=== PATIENT | female | born 1995 | race Caucasian/White ===

== ENCOUNTER 2019-08-19 10:06 | Inpatient (IN) | payer OTHER, SELFPAY ==
[2019-08-19] VITALS (18 sets, daily range): BP systolic 110–131; BP diastolic 51–81; PULSE 74–101; RESP 14–18; TEMP 36.2–37.2; O2SAT 96–100; BMI 29.1
[2019-08-19] MEDS: Cefazolin 2 GM in 0.9% Normal Saline 100 ML IV (10:34)
[2019-08-19 11:01] LABS: Absolute Lymphocyte Count 1.24 X10^3/uL (0.83-4.51); Absolute Neutrophil Count 10.2 X10^3/uL (2.0-7.7); Basophil# 0.02 X10^3/uL; Basophil% 0.2 % (0-1); Eosinophil# 0.01 X10^3/uL; Eosinophils% 0.1 % (0-5); Hematocrit 38.5 % (37-47); Hemoglobin 13.3 g/dL (12.0-15.0); Lymphocyte # 1.24 X10^3/ul (4.0); Lymphocyte % 10.3 % (19-41); Mean Corp Hgb Conc 34.5 g/dL (32-36); Mean Corpuscular Hgb 31.2 pg (27.0-32.0); Mean Corpuscular Volume 90.4 fL (81-99); Mean Platelet Vol. 10.4 fl (6.2-12.0); Monocyte# 0.47 X10^3/uL; Monocyte% 3.9 % (0-10); NRBC Flagged by Analyzer 0 % (0-5); Neutrophil % 85.1 % (47-70); Platelet Count 110 K/mm3 (150-450); RBC Distribution Width CV 12.3 % (11.6-14.6); RBC Distribution Width SD 40.9 fl (35.1-43.9); Red Blood Count 4.26 M/mm3 (4.2-5.4)
[2019-08-19 11:32] LABS: Amphetamine Urine VISTA NEGATIVE (<1000 ng/mL); Barbiturate Urine VISTA NEGATIVE (< 200 ng/mL); Benzodiazepine Urine VISTA NEGATIVE (< 200 ng/mL); Cocaine Urine VISTA NEGATIVE (< 300 ng/mL); Ecstacy Urine VISTA NEGATIVE (< 500 ng/mL); Methadone Urine VISTA NEGATIVE (< 300 ng/mL); PCP Urine VISTA NEGATIVE (< 25 ng/mL); THC Urine VISTA NEGATIVE (< 50 ng/mL); Vista UDS pH Range 5
--- NOTE | 2019-08-19 11:48 | HP.PCM_ITS ---
History Date of Admission: 08/19/19 Final XUAN: 09/03/19 Gestational age: 37 Weeks and 6 Days History of this : This is a 23 year-old, G [], P [], at weeks gestational age. Allergies No Known Allergies Allergy (Verified 08/19/19 10:30) Smoking Status: Never smoker Alcohol: None Number of Fetus(es): 2 History Past Pregnancies: Past Pregnancies Delivery Date Name GA/ Weeks Outcome Route Wt Infant Sex Labor Length Anesthesia Delivery Location Provider FOB Labs: Care with a set up and lay out inspector Physical Exam General: Alert, Oriented x3 Abdomen: Soft, Non Tender, Non-Distended, Gravid Neurological: Cranial nerves II-XII grossly intact COMMUNICATIONS PROGRAMMER: Normal external genitalia Assessment/Plan This is a 23 year-old, G1, P0, at 37&6 weeks gestational age. Patient presented with her & set up and lay out inspector with twin and in labor. Baby A was double footling breech. Patient had an emergent section. Please see the operative report.
[2019-08-19 11:52] LABS: Rubella IgG 2.1 IU/mL
[2019-08-19] MEDS: Methylergonovine 0.2 MG/ML Ampul IM (11:55)
--- NOTE | 2019-08-19 11:57 | OP.PCM_ITS ---
Report of Operation Surgery/Procedure Performed:: Low transvere section Description of Surgical Findings:: Normal maternal uterus & adnexa Delivery Classification: Stat Final XUAN: 09/03/19 Gestational age: 37 Weeks and 6 Days hammer operator: Aurelia Ramos Type of Anesthesia:: Spinal Date of Procedure: 08/19/19 Pre-Operative Diagnosis: (1) Twin (2) Baby A double footling breech presentation Post-Operative Diagnosis: Same Indications for : Breech, Malpresentation Description of Procedure: Patient taken [facility] where vaginal exam confirmed double footling breech presentation of baby A. TAUS performed to confirm both presentations & cardiac activity. Spinal anesthesia was placed soon after decision made to proceed with section. Patient was prepped and draped in normal sterile fashion in a dorsal supinr position with a leftward tilt. After ensuring adequacy of anesthesia the Pfannensteil skin incision was made and carried through to the underlying fascia. The fascia was incised in the midline and carried laterally with the Stahl scissors. The rectus muscles were in the midline and the peritoneum was entered bluntly. The bladder flap was dissected down carefully with the Metzenbaum scissors and blunt dissection. The uterus was incised in a transverse fashion and then incision extended with cephalocaudad traction. Baby A was breech. Buttocks grasped and elevated to uterine incision. Baby A was delivered via typical breech maneuvers. 3VC clamped & cut and baby A handed to waiting RN. Baby B's feet were grasped. Amniotomy performed. Baby B delivered was also delivered via typical breech maneuvers. The 3VC cord was clamped & cut and baby B was handed off to the waiting RN. The placentas were delivered with gentle traction and fundal massage and the uterus was exteriorized and cleared of all clots and debris. The uterine incision was closed with 1 vicryl suture in a running locked fashion. A second imbricating layer of monocryl was placed. The uterus was returned to the peritoneal cavity. The pelvis was irrigated & then cleared of all clots and debris. The uterine incision was reexamined and found to be hemostatic. Some eric was placed over the uterine incision & bladder flap due to the denuded areas. The parietal peritoneum was reapproximated with running vicryl suture. The fascia was closed with looped PDS suture in a running standard fashion. The subcutaneous tissue was examined & any bleeding bovie cauterized. The subcutaneous tissue was reapproximated with plain gut suture. The skin was closed in a subcuticular fashion by the BOX CLOSING MACHINE OPERATOR with me present in the labor and delivery suite. I performed the remainder of the procedure with assistance. Amniotic Membrane Rupture Type: Spontaneous Amniotic Fluid Description: Lightly stained meconium Placenta Disposition: [facility] Drain: Ramires to straight drain Fluids Replaced: 1500ml Cord Entanglement: None Cord Vessel Description: 3 Vessels Infant Gender: Male - baby A - weight 3545g (1 minute): 9 (5 minute): 9 Delayed cord clamping: No Antibiotic Given: Ancef 2 grams IV x1, Zithromax 500 mg/5 mL X1 Complications: None - Admit VTE Documentation VTE Present on Admission: No Baby B - Information Amniotic Membrane Rupture Type: Artificial Presentation: Complete Breech - Operative Information Cord Entanglement: None Cord Vessel Description: 3 Vessels Infant B gender: Female - baby B - weight 2405g (1 minute): 4 (5 minute): 9
[2019-08-19] MEDS: Oxytocin 30 units/NS 500 ml 30 UNITS/500 ML IV.SOLN 167 UNITS IV (12:00)
[2019-08-19 12:17] LABS: HIV - WCH Non-Reactive (Nonreactive); Hepatitis B Surface Antigen Non-Reactive (Nonreactive); Hepatitis C Antibody Non-Reactive (Nonreactive)
[2019-08-19] MEDS: Lactated Ringers 1,000 ML 100 ML IV ×2 (15:04→23:41)
[2019-08-19] MEDS: Ketorolac 30 MG/ML Syringe IV ×2 (17:41→23:41)
--- NOTE | 2019-08-19 20:41 | NURSING ---
Pt educated on Rubella immune status and MMR vaccine. MMR vaccine refused.
--- NOTE | 2019-08-19 22:30 | NURSING ---
Encouraged pt to pump after feedings to increase milk supply.
[2019-08-20] VITALS (8 sets, daily range): BP systolic 99–118; BP diastolic 56–65; PULSE 86–106; RESP 16–20; TEMP 36.1–36.8; O2SAT 95–100
[2019-08-20 00:56] LABS: Rapid Plasmin Reagin (RPR) NONREACTIVE (NONREACTIVE)
[2019-08-20] MEDS: Ketorolac 30 MG/ML Syringe IV ×3 (05:18→18:26)
[2019-08-20 05:26] LABS: Hematocrit 26.3 % (37-47); Mean Corp Hgb Conc 34.2 g/dL (32-36); Mean Corpuscular Volume 90.7 fL (81-99); Mean Platelet Vol. 9.9 fl (6.2-12.0); POSITIVE COUNT YES; Platelet Count 98 K/mm3 (150-450); RBC Distribution Width CV 12.4 % (11.6-14.6); RBC Distribution Width SD 41.1 fl (35.1-43.9); White Blood Count 9.2 K/mm3 (4.4-11.0)
[2019-08-20 05:36] LABS: Scan Indicated on CBC? Y/N NO
--- NOTE | 2019-08-20 14:30 | CASEMGMT ---
Social Work Brief Assessment - Labor and Delivery Unit Refer documentation below for further details. Date of Referral/Notification: 08/20/19 Time of Referral: 06:23 Reason for Referral: RESOURCES Date of Intervention: 08/20/19 Time of Intervention: 14:30 Informant: Medical record and mother of baby (MOB) History: TWIN VIA . 1 BABY WAS SENT TO [place] AND RETURNED AND 1 IN SCN. Assessment: MET WITH MOB AND HER MOTHER IN ROOM. INTRODUCED ROLE AND REASON FOR REFERRAL. MOB NURSING BABY UPON ENTERING ROOM. INFORMED THIS WORKER COULD COME BACK, BUT WAS GIVEN PERMISSION TO STAY AND COMPLETE ASSESSMENT. MOB ALSO GAVE PERMISSION FOR THIS WORKER TO SPEAK OPENLY WITH HER MOTHER PRESENT. MOB REPORTS TWINS, BABY BOY ANUPAMA AND BABY GIRL TRENT WERE BORN ON 08/19/19. MOB HAD PLANNED FOR HOME , BUT HAD TO HAVE . SUPPORT PROVIDED. MOB STATES FEELING OK AND NOT HAVING ANY PAIN CURRENTLY. INFORMED OF REASON FOR REFERRAL FOR RESOURCES. MOB IS ANGLICAN AND REPORTS DOES NOT HAVE CAR SEATS FOR BABIES. HER MOTHER STATES PLAN IS TO CONTACT THEIR FRIEND, GILMA TO SEE ABOUT OBTAINING CAR SEATS BY BORROWING OR PURCHASING. EDUCATION PROVIDED ON [employer]'S CAR SEAT PROGRAM AND INFORMED THIS WORKER WILL CALL ABOUT PROGRAM FOR MOB. MOB DENIES ANY MENTAL HEALTH HISTORY. MOB DENIES ANY HISTORY OF SUBSTANCE ABUSE. MOB REPORTS GOOD SUPPORT FROM FAMILY. INFORMATIONAL PACKET PROVIDED TO MOB INCLUDING INFORMATION ON LOCAL RESOURCES, POST DEPRESSION, SAFE SLEEPING AND SHAKEN BABY. MOB DENIES ANY QUESTIONS OR CONCERNS. INFORMED THIS WORKER WILL FOLLOW UP TOMORROW REGARDING CAR SEATS. NURSING STAFF UPDATED ON THIS WORKER'S ASSESSMENT. Plan: FOLLOW UP WITH MOB AND FAMILY REGARDING OBTAINING CAR SEATS No further needs requested or indicated. -Lina Salinas, EMERGENCY RESPONSE COORDINATOR, SPECIAL DELIVERY MESSENGER
--- NOTE | 2019-08-20 15:10 | PCM.PN.OB ---
Subjective: Doing well per patient and nursing staff. Has been out of bed once. Wu still in place. pain controlled. Pumping and trying to breastfeed. No complaints. - Physical Exam Vitals/I&O's: Vital Signs Temp Pulse Resp BP Pulse Ox 98.3 F 93 16 109/56 L 96 08/20/19 09:01 08/20/19 09:01 08/20/19 11:00 08/20/19 09:01 08/20/19 11:00 Oxygen Delivery Method Room Air Weight: 175 lb Body Mass Index (BMI) 29.1 Intake and Output for Last 24 Hours 08/18/19 08/19/19 08/20/19 23:59 23:59 23:59 Intake Total 2726.62 / 2726.62 1481.67 / 1481.67 Output Total 500 / 500 1450 / 1450 Balance 2226.62 / 2226.62 31.67 / 31.67 General: Alert, Oriented x3, Cooperative HEENT: Atraumatic, Normocephalic Neck: Trachea Midline Lungs: Clear to auscultation, Normal air movement, No rhonchi, No wheeze Cardiovascular: Regular rate, Regular Rhythm, No murmurs Abdomen: Bowel Sounds Present - Fundus firm 2 below U. Incision dressing clean and dry. Intact, Soft, Non-Distended Extremities: Edema - +1 BLE, pitting. Guille's negative Psych/Mental Status: Normal Affect, Appropriate Laboratory Results 08/19/19 10:15: RPR NONREACTIVE 08/20/19 05:10: WBC 9.2, RBC 2.90 L, Hgb 9.0 L, Hct 26.3 L, MCV 90.7, MCH 31.0, MCHC 34.2, RDW Std Deviation 41.1, RDW Coeff of Huyen 12.4, Plt Count 98 L, MPV 9.9 Current Medications Acetaminophen (Tylenol) 1,000 mg PO Q8H PRN PRN Reason: Pain Score 1-3/10 Bisacodyl (Dulcolax) 10 mg RECTAL UD PRN PRN Reason: If no BM Hydrocortisone (Hytone) 1 applic TOPICAL TID PRN PRN; Protocol PRN Reason: Discomfort Naloxone HCl 4 mg/ Dextrose 504 mls @ 0 mls/hr IV .Q0M PRN; Protocol PRN Reason: Respiratory depression Ibuprofen (Motrin) 600 mg PO Q6H PRN PRN PRN Reason: Pain Score 1-3/10 Ketorolac Tromethamine (Toradol) 30 mg IV Q6 MIRANDA Stop: 08/21/19 12:01 Last Admin: 08/20/19 12:40 Dose: 30 mg Documented by: Methylergonovine Maleate (Methergine) 0.2 mg IM X1 PRN PRN Reason: Uterine Atony Last Admin: 08/19/19 11:55 Dose: 0.2 mg Documented by: Naloxone HCl (Narcan) 0.02 mg IV Q1M PRN PRN Reason: RR <10 and pt unresponsive Ondansetron HCl (Zofran) 4 mg IV Q4H PRN PRN PRN Reason: Nausea Oxycodone HCl (Oxyir) 5 - 10 mg PO Q4H PRN PRN PRN Reason: Pain Score 4-10/10 Prochlorperazine Edisylate (Compazine Iv) 10 mg IV Q6H PRN PRN PRN Reason: NAUSEA Senna/Docusate Sodium (Senokot-S, Manisha-Colace) 0 tablet PO DAILY PRN PRN Reason: Constipation Simethicone (Mylicon) 80 mg PO PCHS PRN PRN Reason: Indigestion/stomach pain Sodium Chloride () 5 - 15 ml IV UD PRN PRN Reason: SALINE FLUSH Medical Necessity - Tobacco Use Smoking Status: Never smoker Assessment/Plan A:POD #1 Section P: 1) Routine post op care 2) Planning D/C home tomorrow 3) D/C wu 4) Up out of bed
--- NOTE | 2019-08-20 16:13 | CASEMGMT ---
SOCIAL WORK THIS WORKER CALLED TO FOLLOW UP ON CAR SEAT PROGRAM THROUGH [employer]. INFORMED BY STAFF MEMBER, ALEJANDRO WHO RUNS PROGRAM IS OUT OF THE OFFICE UNTIL August. WILL UPDATE MOB AND FAMILY. Yvonne MAYORGA, ACID PURIFIER, JUDGE.
[2019-08-20] MEDS: 0.9% Saline Lock 10 ML Syringe IV (18:27)
--- NOTE | 2019-08-20 21:05 | NURSING ---
1909 pts mother pressed call light and requested nursing staff to come right away As nursing staff entered room, pt noted to be sitting in rocking chair, appeared pale and diaphoretic. fob reported that pt was just up walking around room and he thinks she over did it Cold wash cloth applied to pts neck and forehead. juice given and deep breaths encouraged. pt then returned to bed with out difficulty, vital signs obtained, fundus noted to be firm and lochia small. pt reported feeling better after returned to bed and drank juice. will continue to monitor
[2019-08-21] MEDS: Ketorolac 30 MG/ML Syringe IV (00:53)
[2019-08-21] MEDS: 0.9% Saline Lock 10 ML Syringe IV ×2 (00:53→06:35)
[2019-08-21 00:58] VITALS: BP 118/73; PULSE 94; RESP 16; TEMP 37.2
[2019-08-21] MEDS: Ibuprofen 600 MG Tablet PO ×2 (06:40→21:59)
--- NOTE | 2019-08-21 07:35 | NURSING ---
Pt. encouraged to nurse infant since it has been a few hours. Family states that infant is fine because he is sleepy but this RN continues to encourage pt. to nurse.
--- NOTE | 2019-08-21 08:07 | PCM.PN.OB ---
Subjective: No complaints - Physical Exam Vitals/I&O's: Vital Signs Temp Pulse Resp BP Pulse Ox 99.0 F 94 16 118/73 97 08/21/19 00:58 08/21/19 00:58 08/21/19 00:58 08/21/19 00:58 08/20/19 19:09 Oxygen Delivery Method Room Air Weight: 175 lb Body Mass Index (BMI) 29.1 Intake and Output for Last 24 Hours 08/19/19 08/20/19 08/21/19 23:59 23:59 23:59 Intake Total 2726.62 / 2726.62 1481.67 / 1481.67 Output Total 500 / 500 2250 / 2250 Balance 2226.62 / 2226.62 -768.33 / -768.33 General: Alert, Oriented x3 Abdomen: Soft, Non Tender, Non-Distended - ff mid & below umb Extremities: No Calf Tenderness Current Medications Acetaminophen (Tylenol) 1,000 mg PO Q8H PRN PRN Reason: Pain Score 1-3/10 Bisacodyl (Dulcolax) 10 mg RECTAL UD PRN PRN Reason: If no BM Hydrocortisone (Hytone) 1 applic TOPICAL TID PRN PRN; Protocol PRN Reason: Discomfort Naloxone HCl 4 mg/ Dextrose 504 mls @ 0 mls/hr IV .Q0M PRN; Protocol PRN Reason: Respiratory depression Ibuprofen (Motrin) 600 mg PO Q6H PRN PRN PRN Reason: Pain Score 1-3/10 Last Admin: 08/21/19 06:40 Dose: 600 mg Documented by: Methylergonovine Maleate (Methergine) 0.2 mg IM X1 PRN PRN Reason: Uterine Atony Last Admin: 08/19/19 11:55 Dose: 0.2 mg Documented by: Naloxone HCl (Narcan) 0.02 mg IV Q1M PRN PRN Reason: RR <10 and pt unresponsive Ondansetron HCl (Zofran) 4 mg IV Q4H PRN PRN PRN Reason: Nausea Oxycodone HCl (Oxyir) 5 - 10 mg PO Q4H PRN PRN PRN Reason: Pain Score 4-10/10 Prochlorperazine Edisylate (Compazine Iv) 10 mg IV Q6H PRN PRN PRN Reason: NAUSEA Senna/Docusate Sodium (Senokot-S, Manisha-Colace) 0 tablet PO DAILY PRN PRN Reason: Constipation Simethicone (Mylicon) 80 mg PO PCHS PRN PRN Reason: Indigestion/stomach pain Sodium Chloride () 5 - 15 ml IV UD PRN PRN Reason: SALINE FLUSH Last Admin: 08/21/19 06:35 Dose: 10 ml Documented by: Medical Necessity - Tobacco Use Smoking Status: Never smoker Assessment/Plan POD#2 Heme - HDS, iron for acute blood loss anemia Encouraged Routine care
[2019-08-21 08:30] VITALS: BP 113/71; PULSE 80; RESP 18; TEMP 36.6
--- NOTE | 2019-08-21 10:43 | NURSING ---
RN brought handout for pt that explains step by step instructions for providing CPR and what to do if infant chokes as pt is Shinto and prefers not to use the tablet. RN instructed pt to read through and encouraged pt to have to read through as well.
--- NOTE | 2019-08-21 11:55 | CASEMGMT ---
SOCIAL WORK MET WITH MOB AND FOB IN ROOM. MOB NURSING BABY BOYANUPAMA UPON ENTERING ROOM. FOB STATES FRIEND PURCHASED CAR SEATS FROM [employer] AND DROPPED THEM OFF LAST EVENING. FOB REPORTS BABY GIRLTRENT FAILED CAR SEAT TRAIL AND IS IN SCN. SUPPORT AND EDUCATION PROVIDED. MOB AND FOB DENY ANY FURTHER NEEDS. STAFF UPDATED. NO FUTHER NEEDS REQUESTED OF INDICATED AT THIS TIME. Yvonne MAYORGA, BROKER ASSOCIATE, GRAPHIC ILLUSTRATOR.
[2019-08-21 14:00] VITALS: BP 124/79; PULSE 82; RESP 18; TEMP 36.7
[2019-08-21] MEDS: Ferrous Sulfate 325 MG Tablet PO (14:04)
[2019-08-21 20:35] VITALS: BP 116/75; PULSE 95; RESP 16; TEMP 36.6; O2SAT 96
[2019-08-22 01:59] VITALS: BP 115/72; PULSE 73; RESP 16; TEMP 36.1; O2SAT 95
[2019-08-22 08:00] VITALS: BP 117/78; PULSE 80; RESP 16; TEMP 36.9
--- NOTE | 2019-08-22 10:42 | PCM.PN.OB ---
Subjective: No complaints - Physical Exam Vitals/I&O's: Vital Signs Temp Pulse Resp BP Pulse Ox 97.0 F L 73 16 115/72 95 08/22/19 01:59 08/22/19 01:59 08/22/19 01:59 08/22/19 01:59 08/22/19 01:59 Oxygen Delivery Method Room Air Weight: 175 lb Body Mass Index (BMI) 29.1 Intake and Output for Last 24 Hours 08/20/19 08/21/19 08/22/19 23:59 23:59 23:59 Intake Total 1481.67 / 1481.67 Output Total 2250 / 2250 Balance -768.33 / -768.33 General: Alert, Oriented x3 Abdomen: Soft, Non-Distended - ff mid & below umb; incision - bandage c/d/i Extremities: No Calf Tenderness Current Medications Acetaminophen (Tylenol) 1,000 mg PO Q8H PRN PRN Reason: Pain Score 1-3/10 Bisacodyl (Dulcolax) 10 mg RECTAL UD PRN PRN Reason: If no BM Ferrous Sulfate (Ferrous Sulfate) 325 mg PO DAILY@1200 MIRANDA Last Admin: 08/21/19 14:04 Dose: 325 mg Documented by: Hydrocortisone (Hytone) 1 applic TOPICAL TID PRN PRN; Protocol PRN Reason: Discomfort Naloxone HCl 4 mg/ Dextrose 504 mls @ 0 mls/hr IV .Q0M PRN; Protocol PRN Reason: Respiratory depression Ibuprofen (Motrin) 600 mg PO Q6H PRN PRN PRN Reason: Pain Score 1-3/10 Last Admin: 08/21/19 21:59 Dose: 600 mg Documented by: Methylergonovine Maleate (Methergine) 0.2 mg IM X1 PRN PRN Reason: Uterine Atony Last Admin: 08/19/19 11:55 Dose: 0.2 mg Documented by: Naloxone HCl (Narcan) 0.02 mg IV Q1M PRN PRN Reason: RR <10 and pt unresponsive Ondansetron HCl (Zofran) 4 mg IV Q4H PRN PRN PRN Reason: Nausea Oxycodone HCl (Oxyir) 5 - 10 mg PO Q4H PRN PRN PRN Reason: Pain Score 4-10/10 Prochlorperazine Edisylate (Compazine Iv) 10 mg IV Q6H PRN PRN PRN Reason: NAUSEA Senna/Docusate Sodium (Senokot-S, Manisha-Colace) 0 tablet PO DAILY PRN PRN Reason: Constipation Simethicone (Mylicon) 80 mg PO PCHS PRN PRN Reason: Indigestion/stomach pain Sodium Chloride () 5 - 15 ml IV UD PRN PRN Reason: SALINE FLUSH Last Admin: 08/21/19 06:35 Dose: 10 ml Documented by: Medical Necessity - Tobacco Use Smoking Status: Never smoker Assessment/Plan A&P: POD#3 Anemia - continue iron D/c to [facility] later today
--- NOTE | 2019-08-22 10:44 | DCINST_ITS ---
Discharge Diet: No Restrictions Discharge Activity: May Shower May resume sexual activity in: 6 weeks Weight Bearing Status: Weight bearing as tolerated Call your doctor if your incision/area has: Continuous Slow Oozing, Sudden Increased Bleeding, Increased Pain/ Swelling, Increased Redness, Foul Smelling Discharge, Swelling at the incision site Suture Line Care: Avoid Pulling/Pushing, Avoid Pinching/Bending Cleanse incision/area with: Soap & Water Additional Instructions: If you experience any of the following, contact your healthcare provider. * Bleeding that soaks a pad every hour for 2 hours * Fever 100.4 or higher * Unrelieved incision or abdominal pain * Swelling, redness, discharge or bleeding from your incision or episiotomy site * Your incision begins to separate * Problems urinating (including inability to urinate or burning while urinating). * Visual changes * Severe headache * Flu-like symptoms * Pain or redness in one of both of your breasts * Pain, warmth, tenderness or swelling in your legs, especially the calf area * Frequent nausea and vomiting * Symptoms of depression or anxiety If you experience any of the following, call 911 or go to the nearest Emergency Room. * Chest pain * Problems breathing * Seizure activity * Partial or complete paralysis of a body part, slurred speech, weakness or dr ooping of the face, or a sudden inability to walk or hold your balance Allergies/Adverse Reactions: Allergies No Known Allergies Allergy (Verified 08/19/19 10:30) Medications to take at Discharge Ferrous Sulfate 325 mg PO DAILY #30 tab 08/22/19 Ibuprofen 400 mg PO Q4H PRN PRN #100 tab 08/22/19 The following prescriptions were given: Ferrous Sulfate 325 mg PO DAILY #30 tab Prescription Printed Ibuprofen 400 mg PO Q4H PRN PRN #100 tab PRN Reason: abdominal pain Prescription Printed Primary Care Physician: Care Physician,No Primary [Primary Care Provider] - Test Results: Test results from this visit will be discussed in further detail at your follow- up appointment, if applicable.
--- NOTE | 2019-08-22 10:44 | PCM.DCVAG ---
Discharge Diet: No Restrictions Discharge Activity: May Shower May resume sexual activity in: 6 weeks Weight Bearing Status: Weight bearing as tolerated Call your doctor if your incision/area has: Continuous Slow Oozing, Sudden Increased Bleeding, Increased Pain/ Swelling, Increased Redness, Foul Smelling Discharge, Swelling at the incision site Suture Line Care: Avoid Pulling/Pushing, Avoid Pinching/Bending Cleanse incision/area with: Soap & Water Additional Instructions: If you experience any of the following, contact your healthcare provider. Bleeding that soaks a pad every hour for 2 hours Fever 100.4 or higher Unrelieved incision or abdominal pain Swelling, redness, discharge or bleeding from your incision or episiotomy site Your incision begins to separate Problems urinating (including inability to urinate or burning while urinating). Visual changes Severe headache Flu-like symptoms Pain or redness in one of both of your breasts Pain, warmth, tenderness or swelling in your legs, especially the calf area Frequent nausea and vomiting Symptoms of depression or anxiety If you experience any of the following, call 911 or go to the nearest Emergency Room. Chest pain Problems breathing Seizure activity Partial or complete paralysis of a body part, slurred speech, weakness or drooping of the face, or a sudden inability to walk or hold your balance Allergies/Adverse Reactions: Allergies No Known Allergies Allergy (Verified 08/19/19 10:30) Medications to take at Discharge Ferrous Sulfate 325 mg PO DAILY #30 tab 08/22/19 Ibuprofen 400 mg PO Q4H PRN PRN #100 tab 08/22/19 The following prescriptions were given: Ferrous Sulfate 325 mg PO DAILY #30 tab Prescription Printed Ibuprofen 400 mg PO Q4H PRN PRN #100 tab PRN Reason: abdominal pain Prescription Printed Primary Care Physician: Care Physician,No Primary [Primary Care Provider] - Test Results: Test results from this visit will be discussed in further detail at your follow-up appointment, if applicable.
[2019-08-22] MEDS: Ferrous Sulfate 325 MG Tablet PO (13:40)
[2019-08-22 14:00] VITALS: BP 114/79; PULSE 90; RESP 16; TEMP 37.1
--- NOTE | 2019-09-03 12:50 | PCM.DC.SUM ---
Discharge Date and Diagnosis Date of Admission: 08/19/19 Date of Discharge: 08/22/19 Hospital Course and Treatment Summary of Care Provided: The patient is a 23 year old Female whoe was admitted with twin in labor at 37&6. She had an emergent for breech twin A in labor - please see operative note. Hospital course is as follows. (1) Heme - HDS, on iron for anemia (2) GI - tolerating regular diet at discharge (3) - wu removed & no voiding issues (4) Patient was discharge on POD#3. She was given prescriptions and follow-up instructions. - Physical Exam Vitals/I&O's: Vital Signs Temp Pulse Resp BP Pulse Ox 98.7 F 90 16 114/79 95 08/22/19 14:00 08/22/19 14:00 08/22/19 14:00 08/22/19 14:00 08/22/19 01:59 Oxygen Delivery Method Room Air Weight: 175 lb Body Mass Index (BMI) 29.1 Discharge Diet: No Restrictions Discharge Activity: May Shower May resume sexual activity in: 6 weeks Weight Bearing Status: Weight bearing as tolerated Call your doctor if your incision/area has: Continuous Slow Oozing, Sudden Increased Bleeding, Increased Pain/ Swelling, Increased Redness, Foul Smelling Discharge, Swelling at the incision site Suture Line Care: Avoid Pulling/Pushing, Avoid Pinching/Bending Cleanse incision/area with: Soap & Water Home Medications: Medications to take at Discharge Ferrous Sulfate 325 mg PO DAILY #30 tab 08/22/19 Ibuprofen 400 mg PO Q4H PRN PRN #100 tab 08/22/19 Following Prescrptions Were Given to Patient: Ferrous Sulfate 325 mg PO DAILY #30 tab Prescription Printed Ibuprofen 400 mg PO Q4H PRN PRN #100 tab PRN Reason: abdominal pain Prescription Printed Primary Care Physician: Care Physician,No Primary [Primary Care Provider] - Please follow up with your Primary Care Physician in: 2 weeks Please Follow Up With: Enrique Gardner Medical Necessity - Tobacco Use Smoking Status: Never smoker Meaningful Use Info Meaningful Use Diagnoses (Choose all that apply): None applicable
== END 2019-08-22 18:10 | disposition home or self-care (01) | DRG 787 ==
PROVIDERS: Admitting Provider Obstetrics & Gynecology; Visit Provider Obstetrics & Gynecology
DX: O30.003 Twin pregnancy, unspecified number of placenta and unspecified number of amniotic sacs, third trimester (principal); D62 Acute posthemorrhagic anemia; O99.02 Anemia complicating childbirth; O32.8XX1 Maternal care for other malpresentation of fetus, fetus 1; O32.8XX2 Maternal care for other malpresentation of fetus, fetus 2; O77.0 Labor and delivery complicated by meconium in amniotic fluid; Z3A.37 37 weeks gestation of pregnancy; Z37.2 Twins, both liveborn
CPT/HCPCS: 80307; 85025; 85027; 86592; 86703; 86762; 86803; 86850; 86900; 86901; 87340; J7120; A4216; J2405